=== PATIENT | male | born 1995 | race Caucasian/White ===

== ENCOUNTER 2016-12-26 18:54 | Emergency (ER) | payer OTHER ==
[~2016-12-26] VITALS: Ht 172.7 cm; Wt 97.5 kg
[2016-12-26 18:58] VITALS: BP 144/86
[2016-12-26] MEDS ORDERED: AMOXICILLIN 50500 MG PO (19:18)
[2016-12-26] MEDS ORDERED: NAPROSYN500 MG PO (19:36)
[2016-12-26] MEDS ORDERED: TRAMADOL 50 MG50 MG PO (19:36)
== END 2016-12-26 19:46 | disposition home or self-care (01) ==
LOC: ER 18:54
DX: K40.90 Unilateral inguinal hernia, without obstruction or gangrene, not specified as recurrent (principal); G43.909 Migraine, unspecified, not intractable, without status migrainosus; F17.210 Nicotine dependence, cigarettes, uncomplicated; F10.99 Alcohol use, unspecified with unspecified alcohol-induced disorder